=== PATIENT | male | born 1955 | race Caucasian/White ===

== ENCOUNTER → 2018-04-12 | Outpatient (CLI) | payer MEDICARE, BC ==
--- NOTE | 2018-04-12 12:22 | RAD ---
EXAM: Right bilateral knees, 2 views. HISTORY: Pain. COMPARISON: None. FINDINGS: Frontal and lateral views of both knees are obtained. There is severe left patellofemoral compartment, moderate right medial and lateral compartment, and minimal right patellofemoral and left medial and lateral compartment spurring. There is no fracture, dislocation or subluxation. There is trace left knee effusion. IMPRESSION: 1. Severe left patellofemoral compartment, moderate right medial and lateral compartment, and minimal left medial and lateral and right patellofemoral compartment osteoarthritis. 2. Suspected trace left knee effusion. Electronically signed by: Shauna Avelar MD (04/12/2018 12:19 PM) [facility]
== END | disposition home or self-care (01) ==
LOC: PMG 11:43
PROVIDERS: ATTEND Physician Assistant
DX: M17.0 Bilateral primary osteoarthritis of knee (principal); M16.11 Unilateral primary osteoarthritis, right hip
CPT/HCPCS: 73560

== ENCOUNTER 2021-06-06 15:54 | Emergency (ER) | payer MEDICARE, BC ==
[~2021-06-06] VITALS: Ht 170.2 cm; Wt 72.7 kg
[2021-06-06 15:59] VITALS: BP 145/98
--- NOTE | 2021-06-06 16:13 | PHYS DOC ---
Adult General HPI HPI Patient is a 66-year-old male presents emergency department complaining of regular right thumb injury reporting he was using a log splitter when the splinter pulled his glove thumb into the log thus crushing it in someway he is not certain up. Patient reports this happened approximately 20 minutes prior to arrival to the emergency department today. Patient denies any field treatment other than placing a pressure bandage on and coming to the emergency department. States he does not hurt all that much, reports his last tetanus immunization was less than 5 years ago. Denies other physical complaints or physical concerns. Denies other physical injuries. Review of Systems Review of Systems 14 body systems of review of systems have been reviewed. See HPI for pertinent positives and negative responses, otherwise all other systems are negative, nonpertinent or noncontributory. Constitutional: Negative except as outlined in HPI above. Skin: Negative except as outlined in HPI above. Eyes: Negative except as outlined in HPI above. HENT: Negative except as outlined in HPI above. Respiratory: Negative except as outlined in HPI above. Cardiovascular: Negative except as outlined in HPI above. GI: Negative except as outlined in HPI above. : Negative except as outlined in HPI above. Musculoskeletal: Negative except as outlined in HPI above. Integument: Negative except as outlined in HPI above. Neurologic: Negative except as outlined in HPI above. Endocrine: Negative except as outlined in HPI above. Lymphatic: Negative except as outlined in HPI above. Psychiatric: Negative except as outlined in HPI above. Physical Exam Physical Exam Constitutional: Well developed, well nourished, no acute distress, non-toxic appearance. 66-year-old male in no apparent distress. HENT: Normocephalic, atraumatic. Eyes: Conjunctiva normal, no discharge. Neck: Normal range of motion, no stridor. Cardiovascular: No cyanosis appreciated, distal cap refill less than 2 seconds. Lungs & Thorax: Patient is in no respiratory distress, no audible adventitious lung sounds appreciated. Abdomen: Nontender, no abnormalities noted. Skin: Warm, dry, no erythema, no rash. See extremity note for focused skin examination Back: No tenderness, no deformities. Extremities: No tenderness, no cyanosis, no clubbing, ROM intact, no edema. Except for right thumb, laceration along the dorsal aspect thumb measuring 2.5 cm just proximal to nail bed cuticle. Bleeding controlled. Distal cap refill less than 2 seconds, full passive range of motion. Neurologic: Alert and oriented X 3, normal motor function, normal sensory function, no focal deficits noted. Psychologic: Affect normal, judgement normal, mood normal. EKG EKG [] Radiology/Procedures Radiology/Procedures PATIENT: COLTON MENDEZ ACCOUNT: [id number] : 1955 LOCATION: ER AGE: 66 SEX: M EXAM STATUS: REG ER ORD. PHYSICIAN: VALDEZ ALBA APRN REASON: Attention right thumb, crush injury PROCEDURE: FINGER(S) RIGHT EXAM: PA view right hand, 2 views right thumb DATE: 06/06/2021 4:10 PM INDICATION: Reason: Attention right thumb, crush injury / Spl. Instructions: / History: . COMPARISON: No Prior FINDINGS: Comminuted, displaced fracture through the tuft of the distal phalanx thumb with moderate associated soft tissue swelling. Moderate to severe multifocal degenerative changes including scattered IP joints, thumb MCP CMC joint and fifth CMC joint. IMPRESSION: 1. Comminuted, displaced fracture distal phalanx thumb. 2. Multifocal degenerative changes. Electronically signed by: Antonio Cavazos MD (06/06/2021 4:21 PM) [facility] Heart Score C/O Chest Pain: No Risk Factors: Risk Factors: DM, Current or recent (<one month) smoker, HTN, HLP, family history of CAD, obesity. Risk Scores: Risk Factors: DM, Current or recent (<one month) smoker, HTN, HLP, family history of CAD, obesity. Course & Med Decision Making Course & Med Decision Making Pertinent Labs and Imaging studies reviewed. (See chart for details) 58-year-old male, vital signs reviewed, resents emerged from concerning right thumb crush injury. Will order x-ray prior to suture repair. Patient's tetanus immunization is reportedly up-to-date and less than 5 years ago. See laceration repair note. X-ray of right thumb reveals open distal tuft fracture comminuted and displaced. Ordered 1 g Ancef IM injection, 600 mg ibuprofen, 1 5/325 Vicodin p.o. for pain. Called and discussed patient case and ED work-up with orthopedic hand specialist Dr. Fan Sher who agrees with laceration repair, Ancef antibiotic injection, Keflex antibiotic prescription, splint, request patient call office early Tuesday morning to be seen Tuesday or Tuesday. Discussed with patient strict follow-up with hand specialist Dr. Maddox on Tuesday, patient was given fracture care instructions, sutures out in 7 to 10 days, laceration care procedures, return to ER precautions and concerns, patient gave verbal understanding of and is amenable to ED discharge planning. Discussed with the patient all findings and diagnostic testing as well as the need to follow-up with their primary care provider for further evaluation and treatment or return to the ED if any new or worsening symptoms. Strict return precautions were also discussed at length, the patient voiced understanding and agreement with the discharge planning. The patient was nontoxic in appearance, in no apparent distress, and hemodynamically stable at the time of disposition. Dragon Disclaimer Dragon Disclaimer This electronic medical record was generated, in whole or in part, using a voice recognition dictation system. Laceration Repair Lac Repair Indication: Right thumb laceration crush injury Time: 1700 Confirmed: Patient, procedure, side, and site correct. Consent: Patient, has given verbal consent. Description/repair Procedure: The patient was placed in the appropriate position and anesthesia around the laceration was achieved with digital block using 8 cc 2% lidocaine without epinephrine. The area was then soaked in Betadine solution for 15 minutes, after a 15-minute air dry, was vigorously irrigated with 500 cc pressurized normal saline, foreign bodies explored, no foreign bodies are appreciated.. The laceration was closed with 6 interrupted sutures using 4-0 nylon. The wound area was then dressed with bacitracin, tube gauze, splinted per ED nursing staff. Complexity: Single layer. Post procedure exam: Circulation, motor, sensory examination intact, bleeding controlled. Total repaired wound length: 3.5 cm. Other Items: Nail bed completely avulsed, was tacked back into place with 4-0 nylon suture included in laceration repair The patient tolerated the procedure well. Complications: Nailbed avulsion. Performed by: Self, Valdez Alba, TESTING MANAGER-C Supervision: Dr. Givens was present for consult regarding the critical aspects of the procedure including closure and post procedure exam. Total time: 30 minutes. Departure Departure: Impression: Primary Impression: Fracture of thumb, right open Disposition: 01 HOME / SELF CARE / HOMELESS Condition: GOOD Referrals: BELKIS BRIDGES (PCP) Patient Instructions: Finger Fracture Additional Instructions: You were seen today in the emergency department after a laceration incident with your log splitter. This also caused a open fracture to the distal bone of your right thumb. Because this was associated with the laceration, this is considered an open fracture. You were also given an antibiotic called Ancef in the emergency department today, I am prescribing you a medication called Keflex for antibiotic to take to prevent any bone infection. Because of the nature of this incident involving a bone fracture and laceration, I encourage you to follow-up with a hand surgeon, I spoke with Dr. Maddox at the [facility], he wishes to see you this Tuesday or Tuesday, please call his office first thing Tuesday for an appointment. Let them know you have an open thumb fracture and Dr. Maddox wants to see you on Tuesday or Tuesday. Please leave the dressing and splint in place until Dr. Maddox has evaluated your thumb fracture. There are 6 sutures that require removal in 7 to 10 days. Please see your primary care physician, Dr. Cobb, or return to the emergency department for removal of the sutures. Please follow Dr. Maddox's recommendations for ongoing wound care and fracture care. Please return to the emergency department for worsening symptoms or other concerns. I am prescribing you pain medication as well, please take as directed. Please apply ice packs to your thumb 30 minutes on and 30 minutes off while awake. This will help decrease swelling and discomfort. Thank you for visiting our Emergency Department. It was a pleasure taking care of you today in the emergency department and we appreciate you trusting us with your care. If any additional problems come up don't hesitate to return to visit us. Please follow up with your primary care provider so they can plan additional care if needed and know about the problem that you had. If symptoms worsen come back to the Emergency Department. Any concerning symptoms that start such as chest pain, shortness of air, weakness or numbness on one side of the body, running high fevers or any other concerning symptoms return to the ER. Dr. Fan Maddox [address] [facility] [address] [place] [address] Area code [phone] EMERGENCY DEPARTMENT GENERAL DISCHARGE INSTRUCTIONS Thank you for coming to [facility] (ED) today and trusting us with you care. We trust that you had a positivie experience in our Emergency Department. If you wish to speak to the department management, you may call the director at [phone]. YOUR FOLLOW UP INSTRUCTIONS ARE FOLLOWS: 1. Do you have a private Doctor? If you do not have a private doctor, please ask for a resource list of physicians or clinics that may be able to assist you with follow up care. 2. The Emergency Physician has interpreted your x-rays. The X-Ray specialist will also review them. If there is a change in the findings, you will be notified in 48 hours when at all possible. 3. A lab test or culture has been done, your results will be reviewed and you will be notified if you need a change in treatment. ADDITIONAL INSTRUCTIONS AND INFORMATION: 1. Your care today has been supervised by a physician who is specially trained in emergency care. Many problems require more than one evaluation for a complete diagnosis and treatment. We recommend that you schedule your follow up appointment as recommended to ensure complete treatment of you illness or injury. If you are unable to obtain follow up care and continue to have a problem, or if your condition worsens, we recommend that you return to the ED. 2. We are not able to safely determine your condition over the phone nor are we able to give sound medical advice over the phone. For these safety reasons, if you call for medical advice we will ask you to come to the ED for further evaluation. 3. If you have any questions regarding these discharge instructions please call the ED at [phone]. SAFETY INFORMATION: In the interest of safety, wellness, and injury prevention; we encourage you to wear your sealbelt, if you smoke; quite smoking, and we encourage family to use a protective helmet for bicycling and other sporting events that present an increased risk for head injury. IF YOUR SYMPTOMS WORSEN OR NEW SYMPTOMS DEVELOP, OR YOU HAVE CONCERNS ABOUT YOUR CONDITION; OR IF YOUR CONDITION WORSENS WHILE YOU ARE WAITING FOR YOUR FOLLOW UP APPOINTMENT; EITHER CONTACT YOUR PRIMARY CARE DOCTOR, THE PHYSICIAN WHOSE NAME AND NUMBER YOU WERE GIVEN, OR RETURN TO THE ED IMMEDIATELY. Scripts Cephalexin (KEFLEX) 500 Mg Capsule 1 CAP PO QID for open thumb fracture, #40 CAP 0 Refills Prov: VALDEZ ALBA NARROW GAUGE BRAKEMAN 06/06/21 Ibuprofen (IBUPROFEN) 600 Mg Tablet 600 MG PO Q6HRS for pain and swelling, #60 TAB 0 Refills Prov: VALDEZ ALBA NARROW GAUGE BRAKEMAN 06/06/21 Hydrocodone Bit/Acetaminophen (HYDROCODONE-APAP 5-325 ) 1 Each Tablet 1 TAB PO PRN Q6HRS PRN for PAIN, #20 TAB 0 Refills Prov: VALDEZ ALBA APRN 06/06/21 Problem Qualifiers Primary Impression: Fracture of thumb, right open Encounter type: initial encounter Phalanx: distal Fracture alignment: displaced Qualified Codes: S62.521B - Displaced fracture of distal phalanx of right thumb, initial encounter for open fracture VALDEZ ALBA APRN Jun 06, 2021 16:13
[2021-06-06] MEDS ORDERED: LIDOCAINE 2% 20 ML VIAL. IJ ONE (16:15)
--- NOTE | 2021-06-06 16:23 | RAD ---
EXAM: PA view right hand, 2 views right thumb DATE: 06/06/2021 4:10 PM INDICATION: Reason: Attention right thumb, crush injury / Spl. Instructions: / History: . COMPARISON: No Prior FINDINGS: Comminuted, displaced fracture through the tuft of the distal phalanx thumb with moderate associated soft tissue swelling. Moderate to severe multifocal degenerative changes including scattered IP joints, thumb MCP CMC joint and fifth CMC joint. IMPRESSION: 1. Comminuted, displaced fracture distal phalanx thumb. 2. Multifocal degenerative changes. Electronically signed by: Antonio Cavazos MD (06/06/2021 4:21 PM) [facility]
[2021-06-06] MEDS ORDERED: ceFAZolin IM 1 GM VIAL IM ONE (16:30)
[2021-06-06] MEDS ORDERED: HYDR-2155 PO (17:21)
[2021-06-06] MEDS ORDERED: CEPH500C PO (17:21)
[2021-06-06] MEDS ORDERED: IBUP600T16 PO (17:21)
[2021-06-06] MEDS ORDERED: HYDROcodone/APAP 5/325MG 1 TAB TABLET PO ONE (17:30)
[2021-06-06] MEDS ORDERED: IBUPROFEN 600 MG TABLET. PO ONE ×2 (17:30→17:32)
[2021-06-06] MEDS ORDERED: BACITRACIN ZINC TOPICAL OINT PACKET. TP ONE (17:30)
[2021-06-06] MEDS ORDERED: HYDROcodone/APAP 5/325MG 1 TAB TABLET ONE (17:32)
== END 2021-06-06 17:43 | disposition home or self-care (01) ==
LOC: ER 15:54
DX: S62.521B Displaced fracture of distal phalanx of right thumb, initial encounter for open fracture (principal); W23.0XXA Caught, crushed, jammed, or pinched between moving objects, initial encounter; Y93.89 Activity, other specified; Y92.89 Other specified places as the place of occurrence of the external cause; Y99.8 Other external cause status
CPT/HCPCS: 11730; 73140; 96372; 99284; J0690

== ENCOUNTER 2021-06-16 09:29 | Emergency (ER) | payer MEDICARE, BC ==
[~2021-06-16] VITALS: Ht 170.2 cm; Wt 72.7 kg
[~2021-06-16 09:29] MED LIST: CEPH500C PO; HYDR-2155 PO; IBUP600T16 PO
--- NOTE | 2021-06-16 09:55 | PHYS DOC ---
Past History Additional Past Medical Histor: BPH Past Surgical History: Other Additional Past Surgical Histo: R hip replacement Alcohol Use: Rarely General Adult EDM: Chief Complaint: SUTURE/STAPLE REMOVAL HPI: HPI: Patient is a 66-year-old male coming in for suture removal. Had sutures placed in his right thumb for a laceration. 6 sutures placed in total. Patient has since followed up with hand surgery who states that he may or may not lose the nail. Patient had nail avulsion and nail was tacked down with sutures. No other complaints. Denies any signs of infection. Review of Systems: Review of Systems: All other systems within normal limits except for as noted in the HPI Allergies: Allergies: Allergies Coded Allergies Type Severity Reaction Last Updated Verified No Known Drug Allergies 06/06/21 No Physical Exam: PE: Constitutional: Well developed, well nourished, no acute distress, non-toxic appearance. [] HENT: Normocephalic, atraumatic, bilateral external ears normal, nose normal. [] Eyes: PERRLA, conjunctiva normal, no discharge. [] Neck: No rigidity, supple, no stridor. [] Cardiovascular: Regular rate and rhythm, brisk cap refill [] Lungs & Thorax: Non labored symmetric respirations, no tachypnea or respiratory distress [] Abdomen: Soft, nondistended. Skin: Warm, dry, no erythema, no rash. [address] without signs of infection, well-healing. [] Back: Unremarkable Extremities: No deformities, range of motion grossly intact, no lower extremity edema [] Neurologic: Alert and oriented X 3, no focal deficits noted. [] Psychologic: Affect normal, judgement normal, mood normal. [] EKG: EKG: [] Radiology/Procedures: Radiology/Procedures: [] Heart Score: C/O Chest Pain: No Risk Factors: Risk Factors: DM, Current or recent (<one month) smoker, HTN, HLP, family history of CAD, obesity. Risk Scores: Score 0 - 3: 2.5% MACE over next 6 weeks - Discharge Home Score 4 - 6: 20.3% MACE over next 6 weeks - Admit for Clinical Observation Score 7 - 10: 72.7% MACE over next 6 weeks - Early Invasive Strategies Course & Med Decision Making: Course & Med Decision Making Sutures removed without complication. Dermabond and Steri-Strips placed to help maintain nail approximation Domenic Disclaimer: Dragayana Disclaimer: This electronic medical record was generated, in whole or in part, using a voice recognition dictation system. Departure Departure: Impression: Primary Impression: Visit for suture removal Disposition: HOME / SELF CARE / HOMELESS Condition: STABLE Referrals: BELKIS BRIDGES (PCP) Patient Instructions: Suture Removal TORIE RODRIGUEZ MD Jun 16, 2021 09:55
[2021-06-16 10:09] VITALS: BP 145/98
== END 2021-06-16 10:04 | disposition home or self-care (01) ==
LOC: ER 09:29
DX: S61.011D Laceration without foreign body of right thumb without damage to nail, subsequent encounter (principal); X58.XXXD Exposure to other specified factors, subsequent encounter
CPT/HCPCS: 99281

== ENCOUNTER → 2021-09-29 | Outpatient (CLI) | payer MEDICARE, BC ==
--- NOTE | 2021-09-29 10:44 | RAD ---
EXAM: Right calcaneus, 2 views; left hip, 2 views. HISTORY: Pain. COMPARISON: None. FINDINGS: Right calcaneus: 2 views of the right calcaneus are obtained. There is no fracture, dislocation or frank bluxation. There is elongation of the anterior process of the calcaneus, finding which can be seen wi th calcaneonavicular coalition. There is no plantar spur. There is a prominent os trigonum. Left hip: 2 views of the left hip are obtained. There is no fracture, dislocation or subluxation. The re is no suspicious osseous lesion. IMPRESSION: 1. Elongation of the anterior process of the right calcaneus. 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 2. No acute osseous finding. Electronically signed by: Shauna Avelar MD (09/29/2021 10:42 AM) [id number]
== END ==
LOC: RAD 10:18
PROVIDERS: ATTEND Physician Assistant
DX: M25.871 Other specified joint disorders, right ankle and foot (principal); M25.552 Pain in left hip
CPT/HCPCS: 73502; 73650